=== PATIENT | male | born 1955 | race Caucasian/White ===

== ENCOUNTER 2023-03-26 10:37 | Emergency (ER) | payer OTHER ==
[~2023-03-26] VITALS: Ht 175.3 cm; Wt 83.0 kg
[2023-03-26 10:46] VITALS: O2SAT 95
[2023-03-26] MEDS ORDERED: LIDOCAINE HCL/PF 1% 10 MG/ML 5ML VIAL INFIL ONE (11:15)
[2023-03-26] MEDS ORDERED: BACITRACIN ZINC OINT UDPKT TOP ONE (11:15)
[2023-03-26] MEDS ORDERED: TETANUS, DIPHTHERIA, PERTUSSIS VAC/PF 0.5ML (>10YR OLD) IM ONE (11:15)
[2023-03-26] MEDS ORDERED: CEPH500C2 PO (12:29)
[2023-03-26] MEDS ORDERED: ACET-2708 PO (12:29)
[2023-03-26] MEDS ORDERED: CEPHALEXIN 250MG CAPSULE PO NR (12:30)
[2023-03-26 13:28] VITALS: BP 149/102; PULSE 91; RESP 16; TEMP 97.9
== END 2023-03-26 13:30 | disposition home or self-care (01) ==
LOC: ER 10:37
DX: S81.811A Laceration without foreign body, right lower leg, initial encounter (principal); I10 Essential (primary) hypertension; W17.89XA Other fall from one level to another, initial encounter; Y93.89 Activity, other specified; Y92.89 Other specified places as the place of occurrence of the external cause; Y99.8 Other external cause status
CPT/HCPCS: 73590; 90715; 12002; 90471; 99283; J3490; Z7610 ×2

== ENCOUNTER 2023-04-02 10:20 | Emergency (ER) | payer MEDICARE, OTHER ==
[~2023-04-02] VITALS: Ht 177.8 cm; Wt 82.0 kg
[~2023-04-02 10:20] MED LIST: ACET-2708 PO; CEPH500C2 PO
[2023-04-02 10:27] VITALS: PULSE 112
[2023-04-02 10:54] VITALS: BP 136/86; RESP 18; TEMP 98.3; O2SAT 98
[2023-04-02] MEDS ORDERED: BACITRACIN ZINC OINT UDPKT TOP ONE (11:00)
[2023-04-02] MEDS ORDERED: DOXY100T28 PO (11:13)
== END 2023-04-02 12:45 | disposition home or self-care (01) ==
LOC: ER 10:20
DX: S91.011D Laceration without foreign body, right ankle, subsequent encounter (principal); I10 Essential (primary) hypertension; Z48.00 Encounter for change or removal of nonsurgical wound dressing; Z98.890 Other specified postprocedural states; X58.XXXD Exposure to other specified factors, subsequent encounter
CPT/HCPCS: 99283

== ENCOUNTER 2023-04-29 13:43 | Emergency (ER) | payer MEDICARE, OTHER ==
[~2023-04-29] VITALS: Ht 177.8 cm; Wt 81.0 kg
[~2023-04-29 13:43] MED LIST changes: +DOXY100T28 PO
[2023-04-29 13:57] VITALS: O2SAT 97
[2023-04-29] MEDS ORDERED: CEPH500T MT (16:03)
[2023-04-29 16:30] VITALS: BP 148/98; PULSE 68; RESP 18; TEMP 98.7
[2023-04-29] MEDS ORDERED: LISI40TA13 MT (16:39)
[2023-04-29] MEDS ORDERED: BACITRACIN ZINC OINT UDPKT TOP ONE (16:45)
[2023-04-29] MEDS ORDERED: BACITRACIN 15GM TUBE TOP SCH (22:00)
== END 2023-04-29 16:45 | disposition home or self-care (01) ==
LOC: ER 14:42
DX: S89.91XA Unspecified injury of right lower leg, initial encounter (principal); Z00.00 Encounter for general adult medical examination without abnormal findings; X58.XXXA Exposure to other specified factors, initial encounter; Y93.89 Activity, other specified; Y92.89 Other specified places as the place of occurrence of the external cause; Y99.8 Other external cause status
CPT/HCPCS: 99283

== ENCOUNTER 2023-05-06 13:25 | Emergency (ER) | payer MEDICARE, OTHER ==
[~2023-05-06] VITALS: Ht 175.3 cm; Wt 82.0 kg
[~2023-05-06 13:25] MED LIST changes: +CEPH500T MT; +LISI40TA13 MT
[2023-05-06 13:56] VITALS: BP 174/103; PULSE 104; RESP 18; TEMP 98.2; O2SAT 98
[2023-05-06] MEDS ORDERED: BO1 TP (14:00)
[2023-05-06] MEDS ORDERED: BACITRACIN ZINC OINT UDPKT TOP ONE (14:15)
== END 2023-05-06 15:24 | disposition home or self-care (01) ==
LOC: ER 13:25
DX: S81.811D Laceration without foreign body, right lower leg, subsequent encounter (principal); I10 Essential (primary) hypertension; Z98.890 Other specified postprocedural states; X58.XXXD Exposure to other specified factors, subsequent encounter
CPT/HCPCS: 99282